=== PATIENT | male | born 1990 | race Caucasian/White ===

== ENCOUNTER 2024-05-24 09:41 | Outpatient (CLI) | payer OTHER, SELFPAY | END 2024-05-24 09:42 | disposition home or self-care (01) | PROVIDERS: PCP Physician Assistant Medical; Visit Provider Physician Assistant Medical | DX: Z00.00 Encounter for general adult medical examination without abnormal findings (principal); D22.5 Melanocytic nevi of trunk; Z13.6 Encounter for screening for cardiovascular disorders; Z13.1 Encounter for screening for diabetes mellitus; Z13.0 Encounter for screening for diseases of the blood and blood-forming organs and certain disorders involving the immune mechanism | CPT/HCPCS: 80053; 80061; 84443 ==